=== PATIENT | female | born 1995 | race Caucasian/White ===

== ENCOUNTER 2020-06-26 13:15 | Day surgery (SDC) | payer OTHER ==
[2020-06-26 13:56] VITALS: BMI 37.5
== END 2020-06-26 15:53 | disposition home or self-care (01) ==
LOC: CSHLD/OP 13:15
PROVIDERS: ATTEND Family Medicine
DX: O30.033 Twin pregnancy, monochorionic/diamniotic, third trimester (principal); O32.1XX2 Maternal care for breech presentation, fetus 2; Z3A.33 33 weeks gestation of pregnancy
CPT/HCPCS: 76819; 99283